=== PATIENT | male | born 1950 | race Caucasian/White ===

== ENCOUNTER 2017-03-11 07:03 | Day surgery (SDC) | payer BC ==
[2017-03-10 14:12] VITALS: BMI 25.4
[2017-03-11] MEDS ORDERED: CEFAZOLIN/Water 2 GM/20 ML SYRINGE ONE (07:27)
[2017-03-11] MEDS ORDERED: Fentanyl 250 MCG/5 ML VIAL ONE (07:32)
[2017-03-11] MEDS ORDERED: Promethazine HCl 25 MG/ML VIAL ONE (07:33)
[2017-03-11] MEDS ORDERED: Midazolam HCl 2 mg/2 ml Vial ONE (09:37)
[2017-03-11] MEDS ORDERED: Bupivacaine/Epinephrine 0.25% 30 ML VIAL ONE (09:37)
[2017-03-11] MEDS ORDERED: PHENYLEPHRINE-NS 100 MCG/ML 10 ML SYRINGE ONE (10:06)
[2017-03-11] MEDS ORDERED: Esmolol 100 MG/10 ML VIAL ONE (10:06)
[2017-03-11] MEDS ORDERED: Propofol 200 MG/20 ML VIAL ONE (10:06)
[2017-03-11] MEDS ORDERED: ePHEDrine/0.9% NaCl/PF SYRINGE 50 mg/10 ml ONE (10:06)
[2017-03-11] MEDS ORDERED: Dexamethasone 20 MG/5 ML VIAL ONE (10:06)
[2017-03-11] MEDS ORDERED: Ketorolac Tromethamine 30 MG/ML VIAL ONE (10:06)
[2017-03-11] MEDS ORDERED: Ondansetron HCl/PF 4 MG/2 ML Vial ONE (10:06)
[2017-03-11] MEDS ORDERED: Glycopyrrolate 0.2 MG/ML 5 ML SYRINGE ONE (10:06)
[2017-03-11] MEDS ORDERED: Lidocaine 1% PF 5 ML VIAL ONE (10:06)
[2017-03-11] MEDS ORDERED: Fentanyl 100 MCG/2 ML VIAL ONE ×2 (11:38→11:50)
--- NOTE | 2017-03-11 11:45 | OP ---
PREOPERATIVE DIAGNOSIS: Right inguinal hernia. SURGEON: Floyd Montenegro M.D. PROCEDURE PERFORMED: Laparoscopic robotic-assisted right inguinal hernia repair with mesh. INDICATIONS: This is a 66-year-old male who had a painful right groin bulge and was found to have a n inguinal hernia. FINDINGS: An indirect right inguinal hernia. PROCEDURE: After informed consent was obtained, the patient was taken to the operating room and giv en general endotracheal anesthesia. He was placed in the supine position. His abdomen was prepped and draped in the usual fashion. Local anesthesia infiltrated subcutaneously and deep, a supraumbil ical incision was performed. The subcu divided sharply. The fascia grasped and an incision made in the fascia. Digital palpation revealed no local adhesions. A 12 mm trocar inserted and pneumoperi toneum was created to a pressure of 15 mmHg. Zero 30-degree laparoscope inserted under direct visio n, two 8 mm ports were placed just lateral to the rectus at the level of the initial incision and th en the patient placed in Trendelenburg position and the robot was docked and I went below to the con sole. The pelvis was inspected. There was a right inguinal hernia, but no left-sided hernia. The peritoneum was opened from median umbilical ligament laterally. A subperitoneal plane was dissected utilizing blunt and sharp dissection and then a large contour mesh was inserted in the pocket. It was sutured to the pubic tubercle medially and to the abdominal wall laterally with interrupted 2-0 silk sutures tied intracorporeally. Then, the peritoneum was closed from lateral to medial with a r unning 3-0 V-Loc suture. Hemostasis assured, all needles removed. Trocars and retractors removed. The fascia closed with interrupted 0 Vicryl suture. Skin closed with interrupted 4-0 Vicryl. Derm abond applied. The patient tolerated the procedure well and transferred to recovery in good conditi on. Sponge and needle count verified correct x2.
== END 2017-03-11 15:15 | disposition home or self-care (01) ==
LOC: SDC 07:03
PROVIDERS: ATTEND Surgery
PROC: 0YU54JZ Supplement Right Inguinal Region with Synthetic Substitute, Percutaneous Endoscopic Approach (ICD-10-PCS; principal; 2017-03-11)
DX: K40.90 Unilateral inguinal hernia, without obstruction or gangrene, not specified as recurrent (principal); E11.9 Type 2 diabetes mellitus without complications; I10 Essential (primary) hypertension; E78.5 Hyperlipidemia, unspecified; G47.00 Insomnia, unspecified; K21.9 Gastro-esophageal reflux disease without esophagitis; M19.90 Unspecified osteoarthritis, unspecified site; K74.60 Unspecified cirrhosis of liver; I25.10 Atherosclerotic heart disease of native coronary artery without angina pectoris; F31.9 Bipolar disorder, unspecified; G43.909 Migraine, unspecified, not intractable, without status migrainosus; Z88.1 Allergy status to other antibiotic agents; Z79.84 Long term (current) use of oral hypoglycemic drugs; Z79.82 Long term (current) use of aspirin; Z79.899 Other long term (current) drug therapy; Z98.1 Arthrodesis status; Z90.79 Acquired absence of other genital organ(s); Z98.890 Other specified postprocedural states; Z86.19 Personal history of other infectious and parasitic diseases; Z87.891 Personal history of nicotine dependence
CPT/HCPCS: 96374; S2900; C1781; J1100; J1170; J1885; J2001; J2250; J2405; J2550; J2704; J3010

== ENCOUNTER 2017-04-11 08:00 | Outpatient (CLI) | payer BC | END 2017-04-11 08:01 | disposition home or self-care (01) | LOC: CT 08:00 | PROVIDERS: ATTEND Urology | DX: R31.0 Gross hematuria (principal); N28.1 Cyst of kidney, acquired; Z98.890 Other specified postprocedural states ==

== ENCOUNTER 2017-04-11 08:47 | Outpatient (CLI) | payer BC ==
[2017-04-11] MEDS ORDERED: Iopamidol 370 76% 100 ML VIAL ONE (17:18)
== END 2017-04-11 08:48 | disposition home or self-care (01) ==
LOC: BICCT 08:47
PROVIDERS: ATTEND Urology
DX: R31.0 Gross hematuria (principal); Q61.02 Congenital multiple renal cysts; K40.90 Unilateral inguinal hernia, without obstruction or gangrene, not specified as recurrent; Z98.890 Other specified postprocedural states
CPT/HCPCS: 74178

== ENCOUNTER 2017-09-12 20:10 | Emergency (ER) | payer BC ==
[2017-09-12] MEDS ORDERED: Lidocaine 1% 20 ML MDV ONE (20:36)
[2017-09-12] MEDS ORDERED: Bacitracin Zinc 1 Packet ONE (21:12)
[2017-09-12] MEDS ORDERED: Adacel (T-DAP) 0.5 ML VIAL ONE (21:12)
== END 2017-09-12 21:48 | disposition home or self-care (01) ==
LOC: SCSER 20:10
DX: S61.213A Laceration without foreign body of left middle finger without damage to nail, initial encounter (principal); E11.9 Type 2 diabetes mellitus without complications; I10 Essential (primary) hypertension; W26.0XXA Contact with knife, initial encounter
CPT/HCPCS: 12001; 90471; 90715; J2001

== ENCOUNTER 2017-10-31 12:50 | Outpatient (CLI) | payer BC ==
[2017-10-31] MEDS ORDERED: Gadobenate Dimeglumine 529 MG/1 ML (20ML VIAL) ONE (13:53)
== END 2017-10-31 12:51 | disposition home or self-care (01) ==
LOC: BICMRI 12:50
PROVIDERS: ATTEND Physician Assistant
DX: M50.30 Other cervical disc degeneration, unspecified cervical region (principal); M50.33 Other cervical disc degeneration, cervicothoracic region; M47.892 Other spondylosis, cervical region; M47.893 Other spondylosis, cervicothoracic region; M99.81 Other biomechanical lesions of cervical region; Z98.890 Other specified postprocedural states; Z98.1 Arthrodesis status
CPT/HCPCS: 72040; 72156; A9579

== ENCOUNTER 2017-12-23 09:12 | Outpatient (CLI) | payer BC ==
--- NOTE | 2017-12-23 11:49 | CT ---
CT ABDOMEN AND PELVIS WITH AND WITHOUT CONTRAST: HISTORY: Abnormal MRI. COMPARISON: MRI 12/07/17. FINDINGS: Lung bases are clear. No pericardial effusion. The hepatic contour is cirrhotic and nodular. On the arterial phase of enhancement, there are no art erial enhancing masses. On the portal venous phase, the portal vein is patent. No evidence of yinka l venous thrombosis. Multiple renal hypodensities are present. Moderate atherosclerotic plaque of the aorta. The spleen and pancreas are unremarkable. The appendix is visualized and is normal. Moderate to severe degenerative changes of the posterior e lements of the lumbar spine. Fiboosseous cysts bilateral femoral head and neck junctions with acetab ular osteophyte formation. IMPRESSION: 1. No evidence of abnormal arterial enhancing hepatic mass. 2. No portal venous thrombosis. POS: [facility]
[2017-12-23] MEDS ORDERED: Iopamidol 370 76% 100 ML VIAL ONE (13:31)
== END 2017-12-23 09:13 | disposition home or self-care (01) ==
LOC: CT 09:12
PROVIDERS: ATTEND Internal Medicine Gastroenterology
DX: R93.5 Abnormal findings on diagnostic imaging of other abdominal regions, including retroperitoneum (principal)
CPT/HCPCS: 74178; 82565

== ENCOUNTER 2018-02-19 21:36 | Emergency (ER) | payer BC, OTHER ==
[2018-02-19] MEDS ORDERED: Morphine 4 MG/ML VIAL ONE ×2 (22:02→23:01)
[2018-02-19] MEDS ORDERED: Ondansetron PF 4 MG/2 ML Vial ONE (22:03)
[2018-02-19 22:17] LABS: #Basophils 0.1 thou/uL (0.0-0.2); #Eosinphils 0.1 thou/uL (0.0-0.7); #Lymphocytes 2.3 thou/uL (1.20-3.40); #Monocytes 0.7 thou/uL (0.11-0.59); #Neutrophils 2.9 thou/uL (1.40-6.50); %Basophils 1.1 % (0.0-1.0); %Eosinophils 1.9 % (0.0-10.0); %Lymphocytes 38.7 % (21.0-51.0); %Monocytes 10.7 % (0.0-10.0); %Neutrophils 47.6 % (42.0-75.0); Hemoglobin 15.1 g/dL (14.0-18.0); Mean Corpuscular HGB CONC 34.9 g/dL (32.0-36.0); Mean Corpuscular Hemoglobin 31.2 pg (27.0-31.0); Mean Corpuscular Volume 89.6 fL (78.0-98.0); Mean Platelet Volume 7.6 fL (7.4-10.4); Platelet Count 156 thou/uL (130-400); RBC Distribution Width 11.2 % (11.5-14.5); Red Blood Cell (RBC) Count 4.84 mill/uL (4.70-6.10); White Blood Cell (WBC) Count 6.1 thou/uL (4.8-10.8)
[2018-02-19 22:21] LABS: INR-International Normal Ratio 1.1; PTT 27.5 SEC (22.9-36.1)
[2018-02-19 22:31] LABS: ALT (SGPT) 20 U/L (8-55); AST (SGOT) 20 U/L (5-34); Albumin 4.3 g/dL (3.4-4.8); Alkaline Phosphatase 55 U/L (40-150); Anion Gap 16 mmol/L (10-20); BUN (Urea Nitrogen) 13 mg/dL (8.4-25.7); Bilirubin, Total 0.4 mg/dL (0.2-1.2); Calc. Creatinine Clearance 0 mL/min (70-130); Calcium 10.6 mg/dL (7.8-10.44); Carbon Dioxide 25 mmol/L (23-31); Chloride 104 mmol/L (98-107); Estimated GFR-MDRD 76; Globulin 2.3 g/dL (2.4-3.5); Glucose 130 mg/dL (80-115); Lipase 53 U/L (8-78); Potassium 3.8 mmol/L (3.5-5.1); Protein, Total 6.6 g/dL (5.8-8.1); Sodium 141 mmol/L (136-145)
[2018-02-19] MEDS ORDERED: Ketorolac Tromethamine 30 MG/ML VIAL ONE (23:27)
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
== END 2018-02-19 23:54 | disposition home or self-care (01) ==
LOC: SCSER 21:36
DX: S13.4XXA Sprain of ligaments of cervical spine, initial encounter (principal); S33.5XXA Sprain of ligaments of lumbar spine, initial encounter; R11.0 Nausea; M25.551 Pain in right hip; M79.621 Pain in right upper arm; R68.84 Jaw pain; I25.10 Atherosclerotic heart disease of native coronary artery without angina pectoris; B19.20 Unspecified viral hepatitis C without hepatic coma; E11.9 Type 2 diabetes mellitus without complications; I10 Essential (primary) hypertension; Z79.84 Long term (current) use of oral hypoglycemic drugs; Z79.899 Other long term (current) drug therapy; V43.52XA Car driver injured in collision with other type car in traffic accident, initial encounter
CPT/HCPCS: 70450; 71260; 72125; 74177; 80053; 83690; 85025; 85610; 85730; 86850; 86900; 86901; 93005; 96374; 96375; 96376; J1885; J2270; J2405

== ENCOUNTER 2018-05-15 11:59 | Observation (INO) | payer BC ==
[2018-05-15 12:46] LABS: #Basophils 0.1 thou/uL (0.0-0.2); #Eosinphils 0.1 thou/uL (0.0-0.7); #Lymphocytes 2.2 thou/uL (1.20-3.40); #Monocytes 0.5 thou/uL (0.11-0.59); #Neutrophils 4.3 thou/uL (1.40-6.50); %Basophils 0.8 % (0.0-1.0); %Eosinophils 1.2 % (0.0-10.0); %Lymphocytes 30.8 % (21.0-51.0); %Monocytes 6.7 % (0.0-10.0); %Neutrophils 60.5 % (42.0-75.0); Hemoglobin 16.2 g/dL (14.0-18.0); Mean Corpuscular HGB CONC 35.6 g/dL (32.0-36.0); Mean Corpuscular Hemoglobin 32.1 pg (27.0-31.0); Mean Platelet Volume 7.6 fL (7.4-10.4); Platelet Count 187 thou/uL (130-400); RBC Distribution Width 11.5 % (11.5-14.5); Red Blood Cell (RBC) Count 5.04 mill/uL (4.70-6.10); White Blood Cell (WBC) Count 7.1 thou/uL (4.8-10.8)
[2018-05-15] MEDS ORDERED: Ondansetron ODT 4 MG TAB ONE (12:48)
[2018-05-15] MEDS ORDERED: Meclizine HCl 25 MG TAB ONE (12:48)
[2018-05-15] MEDS ORDERED: Aspirin Chewable 81 MG TAB ONE (12:48)
[2018-05-15] MEDS ORDERED: Nitroglycerin 2% Ointment 1 INCH/1 GM Packet ONE (12:49)
[2018-05-15] MEDS ORDERED: Acetaminophen 500 MG TAB ONE (12:55)
[2018-05-15 13:05] LABS: ALT (SGPT) 20 U/L (8-55); AST (SGOT) 18 U/L (5-34); Albumin 4.2 g/dL (3.4-4.8); Alkaline Phosphatase 52 U/L (40-150); Anion Gap 15 mmol/L (10-20); BUN (Urea Nitrogen) 14 mg/dL (8.4-25.7); Bilirubin, Total 0.8 mg/dL (0.2-1.2); Calc. Creatinine Clearance 0 mL/min (70-130); Calcium 9.3 mg/dL (7.8-10.44); Carbon Dioxide 23 mmol/L (23-31); Chloride 102 mmol/L (98-107); Estimated GFR-MDRD 83; Globulin 2.3 g/dL (2.4-3.5); Glucose 132 mg/dL (80-115); Lipase 40 U/L (8-78); Potassium 3.9 mmol/L (3.5-5.1); Protein, Total 6.5 g/dL (5.8-8.1); Sodium 136 mmol/L (136-145)
--- NOTE | 2018-05-15 13:56 | RAD ---
FRONTAL VIEW CHEST: Date: 05/15/18 COMPARISON: 08/07/16. INDICATION: Chest pain. FINDINGS: There is no lobar consolidation, effusion, or pneumothorax. Cardiac silhouette is normal in size. Mariela dence of prior sternotomy. There is vascular calcification. IMPRESSION: No focal consolidation. POS: [facility]
[2018-05-15 16:02] LABS: Troponin I Less than 0.010 ng/mL (< 0.028)
[2018-05-15 18:56] LABS: Troponin I Less than 0.010 ng/mL (< 0.028)
[2018-05-15] MEDS ORDERED: HYDROcodone/Acetaminophen 5/325 mg Tablet PO PRN (22:15)
[2018-05-15] MEDS ORDERED: HumaLOG 300 UNITS/3 ML VIAL SC PRN ×2 (22:17)
[2018-05-15] MEDS ORDERED: Dextrose 5% in Water 1,000 ML IV PRN (22:17)
[2018-05-15] MEDS ORDERED: Dextrose 50% Abboject 50 ML SYRINGE SLOW IVP PRN (22:17)
[2018-05-15] MEDS ORDERED: Cyclobenzaprine 10 MG TAB ONE (22:51)
[2018-05-16] MEDS ORDERED: Bisacodyl 10 MG SUPP PR PRN (02:46)
[2018-05-16] MEDS ORDERED: Bisacodyl 5 MG TAB PO PRN (02:46)
[2018-05-16] MEDS ORDERED: Calcium Carbonate 500 MG ChewTAB PO PRN (02:46)
[2018-05-16] MEDS ORDERED: Zolpidem Tartrate 5 MG TAB PO PRN (02:46)
[2018-05-16] MEDS ORDERED: Senokot S 8.6-50 MG TAB PO PRN (02:46)
[2018-05-16] MEDS ORDERED: Acetaminophen 325 MG TAB PO PRN (02:46)
[2018-05-16] MEDS ORDERED: Famotidine/PF 20 mg/2ml Vial SLOW IVP SCH (09:00)
[2018-05-16] MEDS ORDERED: Tamsulosin HCl 0.4 MG CAP PO SCH (09:00)
[2018-05-16] MEDS ORDERED: Lisinopril 5 MG TAB PO SCH (09:00)
[2018-05-16] MEDS ORDERED: Famotidine 20 MG TAB PO SCH (09:00)
[2018-05-16] MEDS ORDERED: Aspirin 325 MG TAB PO SCH (09:00)
[2018-05-16] MEDS ORDERED: Tamsulosin HCl 0.4 MG CAP ONE (09:49)
[2018-05-16] MEDS ORDERED: Lisinopril 5 MG TAB ONE (09:49)
[2018-05-16] MEDS ORDERED: Famotidine/PF 20 mg/2ml Vial ONE (09:50)
[2018-05-16] MEDS ORDERED: Famotidine 20 MG TAB ONE (09:51)
[2018-05-16] MEDS ORDERED: Aspirin 325 MG TAB ONE (09:57)
[2018-05-16] MEDS ORDERED: ADENOSINE 60 MG/20 ML VIAL ONE (13:39)
[2018-05-16] MEDS ORDERED: HYDROcodone/Acetaminophen 5/325 mg Tablet ONE (14:02)
[2018-05-16] MEDS ORDERED: Acetaminophen 325 MG TAB ONE (14:02)
--- NOTE | 2018-05-16 14:12 | NM ---
MYOCARDIAL PERFUSION STUDY: 05/16/2018 COMPARISON: 04/10/2013 RADIOPHARMACEUTICAL: Technetium 99m sestamibi 31.2 millicuries IV at stress. Technetium 99m sestamibi 9.1 millicuries IV at rest. MEDICATIONS: Adenosine 14.5 mL (42.5 mg) IV. FINDINGS: There is a small focal area of diminished uptake seen within the ventricular apex, but there is other louise a normal distribution of radiotracer seen throughout the left ventricular myocardium. No signif icant reversible defect is identified. The rotated planar images do demonstrate patient motion. Gat ed images show normal ventricular wall thickening, but there is hypokinesis involving the septum and inferior left ventricular wall. Calculated left ventricular ejection fraction is 57%. LVEF on prior study in 2012 was 68%. IMPRESSION: 1. Probably normal myocardial perfusion study without significant reversible defect seen to suggest ischemia. The very small defect in the ventricular apex may be related to soft tissue attenuation, a s there is normal ventricular wall motion and thickening in this region. 2. Hypokinesis involving the inferior left ventricular wall and septum. 3. Normal left ventricular ejection fraction of 57%. The left ventricular ejection fraction is dimi nished compared to the study in 2012, when the left ventricular ejection fraction was 68%. POS: [facility]
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
[2018-05-16] MEDS ORDERED: Atorvastatin Calcium 10 MG TAB PO SCH (21:00)
--- NOTE | 2018-06-19 08:37 | STRESS ---
Acquisition Time: 2018-05-16 12:14:40 Total Exercise Time: 00:04:00 Test Indications: CHEST PAIN Medications: Protocol: ADENOSINE Max HR: 065 BPM 41% of Pred: 155 BPM Max BP: 152/070 mmHG Max Work Load: 1.0 METS RESTING ECG: SINUS BRADYCARDIA AT 56 BPM SYMPTOMS: NONE NORMAL BP RESPONSE ECTOPY: NONE ECG STRESS: NO SIGNIFICANT CHANGES INTERPRETATION: NEGATIVE ECG/AWAIT NUCLEAR IMAGES FOR DEFINITIVE DIAGNOSIS Confirmed by CHRISTEL DAILY ([id number]) on 06/19/2018 8:36:23 AM Referred By: MD Chan LOPEZ Confirmed By:CHRISTEL DAILY
== END 2018-05-16 15:30 | disposition home or self-care (01) ==
LOC: SCSER 11:59 → ERHOLD 14:30
PROVIDERS: ADMIT Internal Medicine; ATTEND Internal Medicine
DX: R07.89 Other chest pain (principal); R42 Dizziness and giddiness; E78.5 Hyperlipidemia, unspecified; E11.9 Type 2 diabetes mellitus without complications; I10 Essential (primary) hypertension; K74.60 Unspecified cirrhosis of liver; I25.10 Atherosclerotic heart disease of native coronary artery without angina pectoris; I25.2 Old myocardial infarction; M19.90 Unspecified osteoarthritis, unspecified site; F32.9 Major depressive disorder, single episode, unspecified; Z87.891 Personal history of nicotine dependence; Z79.1 Long term (current) use of non-steroidal anti-inflammatories (NSAID); Z79.82 Long term (current) use of aspirin; Z79.84 Long term (current) use of oral hypoglycemic drugs; Z79.899 Other long term (current) drug therapy; Z88.1 Allergy status to other antibiotic agents; Z95.1 Presence of aortocoronary bypass graft; Z98.890 Other specified postprocedural states
CPT/HCPCS: 36415; 36416; 71045; 78452; 80053; 83690; 84484; 85025; 93005; 93017; A9500; G0378; J0153; Q0162; S0028

== ENCOUNTER 2018-09-01 09:08 | Outpatient (CLI) | payer BC ==
[2018-09-01 09:43] LABS: Estimated GFR-MDRD - POC Greater than 90
--- NOTE | 2018-09-01 11:26 | CT ---
CT ABDOMEN WITH AND WITHOUT IV CONTRAST: HISTORY: Cirrhosis of the liver. Lesion of the liver. COMPARISON: 02/19/2018 and 12/23/2017. FINDINGS: There are minimal dependent changes in the lung bases. Calcified granulomas in the spleen are again seen. Multiple renal hypodensities, likely cysts, are again seen. No calcified gallstones are ident ified. Nodular appearance of the liver is consistent with cirrhosis. A few tiny calcified granulomas are se en in the liver. No evidence of enhancing mass is noted in the liver. No portal splenic thrombosis is seen. No free air, free fluid, or lymphadenopathy is seen in the abdomen. IMPRESSION: Cirrhosis of the liver without evidence of enhancing mass. POS: [facility]
== END 2018-09-01 09:09 | disposition home or self-care (01) ==
LOC: SCSCT 09:08
PROVIDERS: ATTEND Internal Medicine Gastroenterology
DX: K74.60 Unspecified cirrhosis of liver (principal); K76.9 Liver disease, unspecified
CPT/HCPCS: 74170; 82565

== ENCOUNTER 2018-10-10 08:56 | Outpatient (CLI) | payer BC ==
--- NOTE | 2018-10-10 10:41 | MRI ---
MRI LUMBAR SPINE NONCONTRAST: DATE: 10/10/2018. HISTORY: A 68-year-old male with lumbar radiculopathy (right side) and low back pain. COMPARISON: No prior lumbar spine MRIs. FINDINGS: There are 5 lumbar-type vertebrae. Vertebral body heights are maintained. Alignment is normal. The re are numerous left renal cysts. The conus medullaris terminates at L2-3. No major scoliosis. Cau da equina is arranged in a symmetrical, normal distribution throughout the thecal sac. T12-L1: Essentially normal. L1-2: Essential normal. L2-3: Disk space maintained. Prominent diffuse disk bulge. No significant neural foraminal stenosi s. Minimal/mild central spinal canal stenosis. Small posterior epidural fat pad. Mild thecal sac s tenosis. L3-4: Disk space maintained. Mild disk bulge. No significant neural foraminal stenosis or central stenosis. Mild ligamentum flavum thickening and mild bilateral degenerative facet changes. L4-5: Mild disk space narrowing. Prominent diffuse disk bulge. Moderate to severe bilateral facet DJD causes a minimal grade I anterolisthesis of L4 on L5. Moderate right neural foraminal stenosis, with the exiting right L4 nerve root possibly entrapped and compressed between the hypertrophic right facet complex and the lateral and far lateral component of the prominent diffuse disk bulge. To a lesser degree, there is moderate left neural foraminal stenosis. Mild central spinal canal sten osis. Lateral recess stenosis bilaterally. Mild to moderate ligamentum flavum thickening. L5-S1: Essentially normal disk, except minimal disk bulge bilaterally laterally. Thecal sac generou s in caliber. No high-grade neural foraminal stenosis. No high-grade facet DJD. IMPRESSION: Lumbar spondylosis at L4-5 with high-grade facet osteoarthrosis causing a mild grade I spondylolisthe sis, mild degenerative disk disease, and bilateral neural foraminal stenosis, with possible impingeme nt on the exiting right L4 nerve root. Recommend clinical correlation with the distribution of the r adiculopathy. CHIKA Anthony POS: [facility]
== END 2018-10-10 08:57 | disposition home or self-care (01) ==
LOC: SCSMRI 08:56
PROVIDERS: ATTEND Specialist
DX: M47.26 Other spondylosis with radiculopathy, lumbar region (principal); M43.10 Spondylolisthesis, site unspecified; M51.16 Intervertebral disc disorders with radiculopathy, lumbar region; M48.061 Spinal stenosis, lumbar region without neurogenic claudication
CPT/HCPCS: 72148

== ENCOUNTER 2019-01-10 09:41 | Outpatient (CLI) | payer BC ==
--- NOTE | 2019-01-10 13:20 | MRI ---
MRI CERVICAL SPINE WITHOUT CONTRAST: Date: 01/10/19 INDICATION: Cervical spondylosis. Neck pain. Comparison made to CT cervical spine dated 02/19/18. FINDINGS: Postoperative and degenerative changes cervical spine again noted. Anterior plate and screws transfix C4 and C5, which was present on the prior CT. There is bony fusion at C5-6 and C6-7, which correspon ds to prior CT. At C2-3, no significant disc bulge or spondylosis. At C3-4, disc bulge and spondylosis efface the anterior subarachnoid space. No significant cord impin gement. Mild foraminal narrowing bilaterally, more prominent on the left due to facet and uncinate hy pertrophy. At C4-5, disc bulge and spondylosis efface the anterior subarachnoid space. Right foraminal stenosis due to facet and uncinate hypertrophy. At C5-6 and C6-7, there are bony fusion changes. Anterior subarachnoid space is preserved throughout these levels with no central canal stenosis or cord impingement. Mild foraminal narrowing at C6-7 due to uncinate hypertrophy. At C7-T1, there is minimal disc bulge. Cord signal is normal. IMPRESSION: There are postoperative and degenerative changes of the cervical spine, which appear stable when comp ared to the prior CT of 02/19/18. Foraminal encroachment at several levels due to hypertrophic change is seen and was also better documented on the prior CT. POS: [facility]
--- NOTE | 2019-01-10 13:25 | RAD ---
CERVICAL SPINE: 01/10/19 Three views. HISTORY: Cervical spondylosis. Anterior plate and screws transfix C4-5 with interbody implant. Bony fusion at C5-6 and C6-7. Disc na rrowing at C7-T1 with anterolisthesis and hypertrophic spurring at this level. Loss of disc space at C2-3 and mild disc narrowing at C3-4. Facet hypertrophy throughout. Anterolisthesis of at C3-4 is not ed with flexion. IMPRESSION: Degenerative and postop changes of the cervical spine noted as described. POS: [facility]
== END 2019-01-10 09:42 | disposition home or self-care (01) ==
LOC: MRI 09:41
PROVIDERS: ATTEND Nurse Practitioner Family
DX: M43.02 Spondylolysis, cervical region (principal); M47.812 Spondylosis without myelopathy or radiculopathy, cervical region
CPT/HCPCS: 72050; 72141

== ENCOUNTER 2019-02-14 07:05 | Outpatient (CLI) | payer BC ==
[2019-02-14] MEDS ORDERED: Gadobenate Dimeglumine 529 MG/1 ML (20ML VIAL) ONE (09:00)
--- NOTE | 2019-02-14 13:16 | MRI ---
MRI ABDOMEN WITH AND WITHOUT IV CONTRAST: HISTORY: Cirrhosis of the liver. CORRELATION: CT abdomen from 09/01/2018. FINDINGS: The liver demonstrates a nodular surface, consistent with the history of cirrhosis. No enhancing mass is identified. The spleen is normal in size, measuring 10.5 cm. The pancreas and adrenal glands are normal. No gallstones are seen. Bilateral renal cysts are seen, a couple of which appear hemorrhagic, on the left. No enhancing renal mass is identified. No free fluid or lymphadenopathy is noted in the abdomen. There is no evidence of aneurysmal dilatati on of the abdominal aorta. Bone marrow signal is normal. IMPRESSION: Cirrhosis of the liver without evidence of enhancing mass. POS: [facility]
== END 2019-02-14 07:06 | disposition home or self-care (01) ==
LOC: SCSMRI 07:05
PROVIDERS: ATTEND Internal Medicine Gastroenterology
DX: K74.60 Unspecified cirrhosis of liver (principal); K76.89 Other specified diseases of liver
CPT/HCPCS: 74183; 82565; A9577

== ENCOUNTER 2019-03-12 07:05 | Day surgery (SDC) | payer BC ==
[2019-03-09 10:38] VITALS: BMI 23.6
[2019-03-12 07:36] VITALS: BP 135/74; TEMP 97.2
--- NOTE | 2019-03-12 09:01 | RAD ---
CERVICAL MYELOGRAM: DATE: 03/12/2019. HISTORY: Neck pain, cervical radiculopathy. FINDINGS: Informed consent obtained prior to the procedure. 2 views cost control analyst radiograph of the lumbar spine demons trate 5 lumbar-type vertebral bodies with intact pedicles on frontal imaging. There is facet hypertrophy at L4-5 and L5-S1. There is mild multilevel disc space narrowing with anterior osteophyte formation at multiple levels within the lumbar spine as well as at the thoracolumbar junction. There is atherosclerotic calcification of the abdominal aorta. [employer] imaging of the cervical spine demonstrates anterior discectomy and fusion hardware at C4-5. The re is osseous fusion at the C5-6 and C6-7 levels with mild anterolisthesis of C7 on T1 measuring approximately 5 mm. There is multilevel mid cervical spine facet and uncovertebral osteophyte formati on. The patient was placed on the fluoroscopic table in the oblique prone position and skin overlying the lumbar spine was prepped and draped in normal sterile fashion. Skin overlying the L3-4 level is anesthetized with 1% buffered lidocaine. With intermittent fluorosco pic guidance, a 22-gauge spinal needle is advanced into the thecal sac and removal of the stylet yields clear cerebrospinal fluid. Approximately 10 cc of iodinated contrast media was injected into t he thecal sac, outlining nerve roots of the cauda equina. Needle was removed. Patient's head was tilted down to excisional the contrast media into the cervical region. The patient tolerated the procedure well. CT myelogram of the cervical spine to follow. Exposure data: 1.4 minutes of fluoroscopic time, 401.1 mGy*^m2. IMPRESSION: Successful cervical spine myelogram as detailed above. Transcribed Date/Time: 03/12/2019 10:12 AM
--- NOTE | 2019-03-12 09:20 | CT ---
CT MYELOGRAM CERVICAL SPINE: DATE: 03/12/2019. COMPARISON: None. HISTORY: Neck pain, cervical radiculopathy. TECHNIQUE: Axial CT imaging at 2.5 mm intervals through the cervical spine with intrathecal contrast media. Urvashi nal and sagittal reformatted imaging obtained. FINDINGS: Anterior discectomy and fusion hardware is present at the C4-5 level. There is moderate degenerative change at the atlantoaxial interspace. The craniocervical junction gildardo ears intact. There is 2-3 mm of anterolisthesis at C3-4. At C7-T1 there is approximately 4 mm of anterolisthesis. C1 ring is intact. C2-3: There is facet and uncovertebral osteophyte formation bilaterally, left greater than right. No significant central canal or neural foraminal stenosis. C3-4: No significant central canal or right neural foraminal stenosis. There is moderate left neural foraminal stenosis on the basis of facet and uncovertebral osteophyte formation. C4-5: Anterior discectomy and fusion hardware is present. Bilateral facet hypertrophy noted, left gre ater than right. There is significant right-sided uncovertebral osteophyte formation. There is mild central canal stenosis. No significant left neural foraminal stenosis. Moderate right neural foramina l stenosis, primarily on the basis of uncovertebral osteophyte formation. C5-6: There is fusion at the intervertebral disc level. There is mild bilateral facet hypertrophy wit h no significant central canal or neural foraminal stenosis. C6-7: Osseous fusion at the intervertebral disc level. Mild right neural foraminal stenosis on the ba sis of uncovertebral osteophyte formation. No significant left neural foraminal stenosis. C7-T1: Bilateral facet hypertrophy. Mild bilateral neural foraminal stenosis, right greater than left . No significant central canal stenosis. No lytic or blastic bone lesion. No acute fracture or evidence of dislocation. The visualized lung apices are unremarkable. There is calcified atherosclerotic plaque involving the distal CCA and proximal ICA bilaterally, not well characterized on noncontrast enhanced imaging. IMPRESSION: Postoperative and degenerative change within the cervical spine as detailed above. Transcribed Date/Time: 03/12/2019 10:00 AM
[2019-03-12] MEDS ORDERED: Iopamidol-M 300 61% 15 ML VIAL ONE (09:45)
[2019-03-12] MEDS ORDERED: FLU VACC TS2019-20(65YR UP)/PF 180 MCG/0.5 ML SYRINGE IM ONE (10:45)
[2019-03-12] MEDS ORDERED: Prevnar 13-Val Conj/PF 0.5 ML SYRINGE IM ONE (10:45)
== END 2019-03-12 10:30 | disposition home or self-care (01) ==
LOC: RAD 07:05
PROVIDERS: ATTEND Neurological Surgery
PROC: B00BYZZ Plain Radiography of Spinal Cord using Other Contrast (ICD-10-PCS; principal; 2019-03-12)
DX: M54.12 Radiculopathy, cervical region (principal); M25.78 Osteophyte, vertebrae
CPT/HCPCS: 62302; 72126; Q9967

== ENCOUNTER 2019-05-14 08:04 | Inpatient (IN) | payer BC, MEDICARE ==
[2019-05-11 16:13] VITALS: BMI 24.3
[2019-05-14 08:44] LABS: #Eosinphils 0.1 thou/uL (0.0-0.7); #Lymphocytes 1.9 thou/uL (1.20-3.40); #Monocytes 0.6 thou/uL (0.11-0.59); #Neutrophils 2.5 thou/uL (1.40-6.50); %Basophils 0.7 % (0.0-1.0); %Eosinophils 2.8 % (0.0-10.0); %Lymphocytes 36.1 % (21.0-51.0); %Monocytes 12.2 % (0.0-10.0); %Neutrophils 48.2 % (42.0-75.0); Hemoglobin 14.3 g/dL (14.0-18.0); Mean Corpuscular HGB CONC 34.2 g/dL (32.0-36.0); Mean Corpuscular Hemoglobin 31.8 pg (27.0-31.0); Mean Corpuscular Volume 92.9 fL (78.0-98.0); Mean Platelet Volume 7.3 fL (7.4-10.4); Platelet Count 190 thou/uL (130-400); RBC Distribution Width 11.8 % (11.5-14.5); Red Blood Cell (RBC) Count 4.49 mill/uL (4.70-6.10); White Blood Cell (WBC) Count 5.2 thou/uL (4.8-10.8)
[2019-05-14 09:03] LABS: Anion Gap 12 mmol/L (10-20); BUN (Urea Nitrogen) 18 mg/dL (8.4-25.7); Calc. Creatinine Clearance 91 mL/min (70-130); Calcium 9.7 mg/dL (7.8-10.44); Carbon Dioxide 26 mmol/L (23-31); Chloride 105 mmol/L (98-107); Estimated GFR-MDRD 88; Glucose 155 mg/dL (80-115); Sodium 139 mmol/L (136-145)
[2019-05-14] MEDS ORDERED: Bacitracin Zinc Ointment 30 gm TUBE ONE (11:16)
[2019-05-14] MEDS ORDERED: Famotidine/PF 20 mg/2ml Vial ONE (11:26)
[2019-05-14] MEDS ORDERED: Fentanyl 100 MCG/2 ML VIAL ONE ×3 (11:26→13:30)
[2019-05-14] MEDS ORDERED: SUGAMMADEX SODIUM 500 MG/5 ML VIAL ONE (12:13)
[2019-05-14] MEDS ORDERED: Ondansetron HCl/PF 4 MG/2 ML Vial IVP PRN ×2 (13:11→13:53)
[2019-05-14] MEDS ORDERED: Promethazine HCl 25 MG/ML VIAL IM PRN ×3 (13:11→14:24)
[2019-05-14] MEDS ORDERED: Promethazine HCl 25 MG/ML VIAL SLOW IVP PRN ×2 (13:11→13:53)
[2019-05-14] MEDS ORDERED: Tamsulosin HCl 0.4 MG CAP ONE (13:12)
[2019-05-14] MEDS ORDERED: Morphine 4 MG/ML VIAL ONE (13:41)
[2019-05-14] MEDS ORDERED: Ondansetron PF 4 MG/2 ML Vial ONE (13:53)
[2019-05-14] MEDS ORDERED: Rocuronium Bromide 10 MG/ML (10ML VIAL) ONE (13:53)
[2019-05-14] MEDS ORDERED: Ketorolac Tromethamine 30 MG/ML VIAL ONE (13:53)
[2019-05-14] MEDS ORDERED: Dexamethasone 20 MG/5 ML VIAL ONE (13:53)
[2019-05-14] MEDS ORDERED: ePHEDrine/0.9% NaCl/PF SYRINGE 50 mg/10 ml ONE (13:53)
[2019-05-14] MEDS ORDERED: Metoclopramide HCl 10 MG/2 ML VIAL ONE (13:53)
[2019-05-14] MEDS ORDERED: PACU-Morphine 4MG/ML VIAL SLOW IVP PRN (13:53)
[2019-05-14] MEDS ORDERED: Lidocaine 1% PF 5 ML VIAL ONE (13:53)
[2019-05-14] MEDS ORDERED: PROPOFOL 200 MG/20 ML VIAL ONE (13:53)
[2019-05-14] MEDS ORDERED: ACETAMINOPHEN WITH CODEINE PO PRN (13:58)
[2019-05-14] MEDS ORDERED: Scopolamine 1.5 mg/72 hour Patch TOP PRN (14:02)
[2019-05-14] MEDS ORDERED: Morphine 2 MG/ML SYRINGE ONE (14:04)
--- NOTE | 2019-05-14 14:10 | OP ---
DATE OF PROCEDURE: 05/14/2019 MECHANICAL INTEGRITY ENGINEER: Kaela Lei PA-C PROCEDURE PERFORMED: Posterior C4-C5 decompression, posterolateral C4-C5 arthrodesis, demineralized bone matrix, local morselized autograft, lateral mass screw instrumentation C4-C5. DESCRIPTION OF PROCEDURE: The patient was brought to the operating room and intubated. He was rolled in a prone position on gel-filled chest rolls. An incision was made exposing C4 and C5 and the level was confirmed by x-ray for modest bilateral C4-C5 laminectomies and then placed lateral mass screws at right C4 and right C5 using fluoroscopic guidance. The lexis was secured between the screws, connected by nuts, which were final tightened. The wound was then extensively irrigated and MAC hemostasis was secured. The left-sided lamina on the posterolateral surfaces was prepared for the purpose of arthrodesis and a combination of demineralized bone matrix and local morselized autograft was laid over both the left and right lamina on the posterolateral surfaces for the purpose of arthrodesis. Vancomycin powder was applied and the wound was then closed in anatomic layers. Job ID: [id number]
[2019-05-14] MEDS ORDERED: diphenhydrAMINE 50 MG/ML VIAL IVP PRN (14:24)
[2019-05-14] MEDS ORDERED: Promethazine HCl 12.5 MG SUPP PR PRN (14:24)
[2019-05-14] MEDS ORDERED: traMADol HCl 50 MG TAB PO PRN (14:24)
[2019-05-14] MEDS ORDERED: HYDROcodone/Acetaminophen 10/325 mg Tablet PO PRN (14:24)
[2019-05-14] MEDS ORDERED: Morphine 2 MG/ML SYRINGE SLOW IVP PRN (14:24)
[2019-05-14] MEDS ORDERED: Mag-Al 1200 mg/1200 mg/30 ML UDCUP PO PRN (14:24)
[2019-05-14] MEDS ORDERED: Ondansetron PF 4 MG/2 ML Vial IVP PRN (14:24)
[2019-05-14] MEDS ORDERED: diphenhydrAMINE 25 MG CAP PO PRN (14:24)
[2019-05-14] MEDS ORDERED: Milk Of Magnesia 30 ML UDCUP PO PRN (14:24)
[2019-05-14] MEDS ORDERED: Promethazine 25 MG TAB PO PRN (14:24)
[2019-05-14] MEDS: tiZANidine HCl 4 MG TAB PO PRN ×2 (15:39→21:23)
[2019-05-14] MEDS: traMADol HCl 50 MG TAB PO PRN ×2 (15:39→21:23)
[2019-05-14] MEDS: Sodium Chloride 0.9% 1,000 ML IV SCH (15:42)
[2019-05-14] MEDS: Morphine 4 MG/ML VIAL SLOW IVP PRN ×2 (18:00→23:41)
[2019-05-14] MEDS: metFORMIN 500 MG TAB PO SCH (18:00)
[2019-05-14] MEDS: CEFAZOLIN 2 GM in Premix Bag 1 BAG IVPB SCH (18:00)
[2019-05-14] MEDS ORDERED: Acetaminophen 325 MG TAB PO PRN (18:52)
[2019-05-14] MEDS ORDERED: Acetaminophen 650 MG Suppository PR PRN (18:52)
[2019-05-14] MEDS ORDERED: Dextrose 5% in Water 1,000 ML IV PRN (18:53)
[2019-05-14] MEDS ORDERED: HumaLOG 300 UNITS/3 ML VIAL SC PRN (18:53)
[2019-05-14] MEDS ORDERED: Dextrose 50% Abboject 50 ML SYRINGE SLOW IVP PRN (18:53)
--- NOTE | 2019-05-14 19:54 | CON ---
DATE OF CONSULTATION: 05/14/2019 TIME OF ASSESSMENT: 1700 hours. REASON FOR CONSULTATION: Medical management. HISTORY OF PRESENT ILLNESS: Mr. Lopez is a pleasant 68-year-old gentleman, who is status post cervical spine surgery done today. He underwent posterior C4-C5 decompression. He has multiple comorbidities including hypertension, hyperlipidemia, diabetes mellitus, and coronary artery disease. He has been referred for medical management. At this present time, the patient reports having some mild neck pain, but states it is tolerable and being managed with his medications. He otherwise has no complaints. He is currently having his dinner and appears to be in no distress. The patient states that at home his blood sugars tend to be under control and the last 3 times his hemoglobin A1c has been checked that has been under 6%. He reports undergoing a CABG x3 in July 2017. He had initially presented with an NSTEMI. The patient states he has been keeping in shape and exercises frequently at [facility]. 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 PAST MEDICAL HISTORY: 1. NSTEMI. 2. Diabetes mellitus. 3. Hypertension. 4. Hepatitis C, treated with interferon under the direction of Dr. Chaves in 2009. 5. Insomnia. 6. Hyperlipidemia. 7. BPH. 8. GERD. 9. Chronic neck pain. 10. Depression. 11. Arthritis. 12. Decompensated cirrhosis, biopsy-proven. 13. ASCVD. 14. Bipolar I disorder. 15. Migraines. 16. History of vertigo. PAST SURGICAL HISTORY: 1. C5 through C7 fusion in 2000. 2. Colonoscopy with polypectomy in June 2006. 3. Kidney surgery. 4. Arm surgery. 5. Cervical spine surgery in 2013, he had fusion of C4-5. 6. TURP and left retrograde pyelogram in March 2015. 7. CABG x3 in July 2016. 8. Right inguinal hernia surgery in 2016. FAMILY HISTORY: His father is and had been diagnosed with hypertension, diabetes, and heart disease. His mother also with no past medical history. His brother has diabetes and hepatitis C. SOCIAL HISTORY: The patient lives with his . Denies any tobacco use. Previously smoked. Denies any alcohol consumption. ALLERGIES: LEVOFLOXACIN AND TETRACYCLINE. CURRENT MEDICATIONS: 1. Tylenol with Codeine. 2. Amlodipine. 3. Wellbutrin. 4. Lisinopril. 5. Metformin. 6. Pantoprazole. 7. Scopolamine. 8. Tizanidine. 9. Zinc. 10. Aspirin. 11. Coreg. PHYSICAL EXAMINATION: GENERAL: The patient appears well developed, well nourished, and is in no acute distress. VITAL SIGNS: Temperature 97.8, pulse 62, respirations 18, O2 saturation 97% on room air, blood pressure 127/83. HEENT: Normocephalic and atraumatic. Pupils are equal, round, reactive to light. Sclerae without icterus. Oropharynx is clear. NECK: Supple without lymphadenopathy. Some discomfort due to recent surgery. Neck cushion in place. LUNGS: Clear to auscultation bilaterally without wheezes, rales, or rhonchi. CARDIAC: Regular rate and rhythm without audible murmurs, rubs, or gallops. ABDOMEN: Soft, nontender, nondistended. Normoactive bowel sounds present. No guarding or rigidity. No renal angle tenderness. EXTREMITIES: No lower leg swelling or edema. Mechanical SCDs in place. LABORATORY DATA: White count 5.2, hemoglobin 14.3, hematocrit 41.7, platelets 190. Sodium 139, potassium 4.0, BUN 18, creatinine 0.87, GFR 88, glucose 155, calcium 9.7. EKG, sinus bradycardia with a heart rate of 54 done on May 14, 2019. IMAGING DATA: None. IMPRESSION AND PLAN: Mr. Lopez is a pleasant 68-year-old gentleman, who is status post decompression of the cervical spine, who had surgery done today. Apparently, he had an accident recently with damage to previously completed cervical spine fusion. The patient states his pain is under control at this present time and he has been referred for medical management of the following. 1. Diabetes mellitus. Insulin sliding scale initiated. The patient's glucose appears to be well controlled with metformin and dietary changes. We will continue to monitor glucose. 2. Hypertension. Well controlled. Home medications have been restarted. We will continue to monitor blood pressure. 3. Coronary artery disease. Home medications have been restarted. EKG showed sinus bradycardia. He is receiving IV fluids at 75 mL an hour. Echocardiogram on file from July 2016 showed normal ejection fraction of 55% to 60%. There was E/A flow reversal noted suggestive of diastolic dysfunction. We will add BMP to labs. 4. Gastroesophageal reflux disease. The patient is on Protonix p.o. daily, which we will continue. 5. Depression/bipolar disorder. Home medications have been restarted. 6. Deep venous thrombosis prophylaxis with mechanical SCDs. 7. Code status is full. Surrogate decision maker is Lucie Guerrero. 8. Disposition. As per Surgical Team. Thank you for this consultation. We will continue to follow this patient with you. Job ID: [id number]
[2019-05-14] MEDS: Carvedilol 6.25 MG TAB PO SCH (20:03)
[2019-05-14] MEDS: Amlodipine 10 MG TAB PO SCH (20:03)
[2019-05-14] MEDS ORDERED: Famotidine/PF 20 mg/2ml Vial SLOW IVP SCH (21:00)
[2019-05-15] MEDS: CEFAZOLIN 2 GM in Premix Bag 1 BAG IVPB SCH (03:05)
[2019-05-15] MEDS: tiZANidine HCl 4 MG TAB PO PRN ×2 (03:06→12:16)
[2019-05-15] MEDS: traMADol HCl 50 MG TAB PO PRN ×3 (03:06→19:26)
[2019-05-15] MEDS: Sodium Chloride 0.9% 1,000 ML IV SCH (04:30)
[2019-05-15] MEDS: Tamsulosin HCl 0.4 MG CAP PO SCH (05:03)
[2019-05-15] MEDS: Morphine 4 MG/ML VIAL SLOW IVP PRN ×4 (05:03→23:29)
[2019-05-15 05:11] LABS: #Lymphocytes 0.9 thou/uL (1.20-3.40); #Monocytes 0.9 thou/uL (0.11-0.59); #Neutrophils 9.9 thou/uL (1.40-6.50); %Lymphocytes 7.6 % (21.0-51.0); %Monocytes 7.8 % (0.0-10.0); %Neutrophils 84.6 % (42.0-75.0); Hemoglobin 13.5 g/dL (14.0-18.0); Mean Corpuscular HGB CONC 34.2 g/dL (32.0-36.0); Mean Corpuscular Hemoglobin 32.3 pg (27.0-31.0); Mean Corpuscular Volume 94.7 fL (78.0-98.0); Mean Platelet Volume 7.9 fL (7.4-10.4); Platelet Count 167 thou/uL (130-400); RBC Distribution Width 11.8 % (11.5-14.5); Red Blood Cell (RBC) Count 4.17 mill/uL (4.70-6.10); White Blood Cell (WBC) Count 11.7 thou/uL (4.8-10.8)
[2019-05-15] MEDS: HumaLOG 300 UNITS/3 ML VIAL SC PRN ×3 (05:11→16:58)
[2019-05-15 05:21] LABS: Anion Gap 13 mmol/L (10-20); BUN (Urea Nitrogen) 18 mg/dL (8.4-25.7); Calc. Creatinine Clearance 83 mL/min (70-130); Calcium 8.3 mg/dL (7.8-10.44); Carbon Dioxide 24 mmol/L (23-31); Chloride 102 mmol/L (98-107); Estimated GFR-MDRD 78; Glucose 199 mg/dL (80-115); Potassium 4.2 mmol/L (3.5-5.1); Sodium 135 mmol/L (136-145)
--- NOTE | 2019-05-15 06:19 | PRG ---
DATE OF SERVICE: 05/15/2019 SUBJECTIVE: The patient is postoperative day #1, status post C4-C5 posterior fusion. Following the surgery, he was transitioned to the Med/Surg floor. He has had some issues with pain control overnight, but he is only taking the p.o. tramadol. He does have orders for [place], however, he was resistant to take this overnight because it makes him somewhat jittery. He is not having any weakness or any other worrisome findings. OBJECTIVE: On exam this morning, the patient is awake, alert, in no acute distress. He has free active range of motion of all extremities. No focal motor weakness. Incision is clean, dry, and intact. PLAN: We will continue to work on pain control and mobilization. PT has been ordered. I anticipate home in 1 to 2 days. Job ID: [id number]
[2019-05-15] MEDS: metFORMIN 500 MG TAB PO SCH ×2 (07:26→16:57)
[2019-05-15] MEDS: glipiZIDE 5 MG TAB PO SCH (07:26)
[2019-05-15] MEDS: Bupropion 150 MG XL TAB PO SCH (08:32)
[2019-05-15] MEDS: Lisinopril 5 MG TAB PO SCH (08:33)
[2019-05-15] MEDS: Carvedilol 6.25 MG TAB PO SCH ×2 (08:33→21:02)
[2019-05-15] MEDS ORDERED: FLU VACC TS2019-20(65YR UP)/PF 180 MCG/0.5 ML SYRINGE IM ONE (09:00)
[2019-05-15] MEDS ORDERED: buPROPion 75 MG TAB PO SCH (09:00)
[2019-05-15] MEDS ORDERED: Prevnar 13-Val Conj/PF 0.5 ML SYRINGE IM ONE (09:00)
--- NOTE | 2019-05-15 11:05 | PDOC.HOSPP ---
- Subjective Encounter Date: 05/15/19 Encounter Time: 09:35 Subjective: feels better has amb in hallway says his UE movement and parasthesias have gotten better - Objective Vital Signs & Weight: Vital Signs (12 hours) Temp Pulse Resp BP BP Pulse Ox 05/15/19 10:41 98.5 F 68 20 127/73 94 L 05/15/19 08:33 66 135/62 05/15/19 08:00 93 L 05/15/19 07:07 98.4 F 66 20 135/62 93 L 05/15/19 03:14 98.7 F 77 16 134/73 93 L 05/14/19 23:30 98.3 F 75 18 150/76 H 95 Weight Weight 170 lb I&O: 05/14/19 05/15/19 05/16/19 06:59 06:59 06:59 Intake Total 1700 Balance 1700 Result Diagrams: 05/15/19 04:11 05/15/19 04:11 Additional Labs: Accuchecks 05/15/19 05/14/19 05:12 22:37 POC Glucose 196 H 277 H Hospitalist ROS - Medication Medications: Active Medications Generic Name Dose Route Start Last Admin Trade Name Freq PRN Reason Stop Dose Admin Amlodipine Besylate 10 mg 05/14/19 21:00 05/14/19 20:03 Norvasc PO 10 mg HS NOEL Administration Bupropion HCl 300 mg 05/15/19 09:00 05/15/19 08:32 Wellbutrin Xl PO 300 mg DAILY NOEL Administration Carvedilol 12.5 mg 05/14/19 21:00 05/15/19 08:33 Coreg PO 12.5 mg BID NOEL Administration Glipizide 5 mg 05/15/19 07:30 05/15/19 07:26 Glucotrol PO 5 mg DAILY-AC NOEL Administration Sodium Chloride 1,000 mls @ 75 mls/hr 05/14/19 14:24 05/15/19 04:30 Normal Saline 0.9% IV Not Given .[id number] NOEL Insulin Human Lispro 0 units 05/14/19 18:53 05/15/19 05:11 Humalog SC 2 unit .MILD SLIDING SCALE PRN Administration Mild Correctional Scale Lisinopril 5 mg 05/15/19 09:00 05/15/19 08:33 Zestril PO 5 mg DAILY NOEL Administration Metformin HCl 1,000 mg 05/14/19 17:00 05/15/19 07:26 Glucophage PO 1,000 mg BID-WM NOEL Administration Morphine Sulfate 4 mg 05/14/19 14:24 05/15/19 09:39 Morphine SLOW IVP 4 mg Q1H PRN Administration SEVERE BREAKTHROUGH PAIN Pantoprazole Sodium 40 mg 05/15/19 09:00 05/15/19 08:33 Protonix PO 40 mg DAILY NOEL Administration Sodium Chloride 10 ml 05/14/19 14:24 05/15/19 09:40 Flush - Normal Saline IVF 10 ml PRN PRN Administration Saline Flush Tamsulosin HCl 0.4 mg 05/15/19 06:00 05/15/19 05:03 Flomax PO 0.4 mg 0600 NOEL Administration Tizanidine HCl 4 mg 05/14/19 14:24 05/15/19 03:06 Zanaflex PO 4 mg Q6H PRN Administration MUSCLE SPASM Tramadol HCl 100 mg 05/14/19 14:24 05/15/19 03:06 Ultram PO 100 mg Q6H PRN Administration PAIN (4-6) - Exam General Appearance: NAD, awake alert Eye: anicteric sclera ENT: no oropharyngeal lesions, moist mucosa Neck: symmetric, no JVD Heart: RRR, no murmur Respiratory: no wheezes, no rales Gastrointestinal: soft, non-tender, non-distended, normal bowel sounds Extremities: no cyanosis, no edema Neurological: cranial nerve grossly intact, no focal deficits Psychiatric: normal affect, A&O x 3 Hosp A/P (1) s/p C3-4 decompression and arthrodesis Status: Acute (2) BPH (benign prostatic hyperplasia) Code(s): N40.0 - BENIGN PROSTATIC HYPERPLASIA WITHOUT LOWER URINRY TRACT SYMP Status: Chronic Qualifiers: Lower urinary tract symptom presence: symptoms absent Qualified Code(s): N40.0 - Benign prostatic hyperplasia without lower urinary tract symptoms (3) CAD (coronary artery disease) Code(s): I25.10 - ATHSCL HEART DISEASE OF [place] CORONARY ARTERY W/O ANG PCTRS Status: Chronic Qualifiers: Coronary Disease-Associated Artery/Lesion type: bypass graft [place] vs. 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
[2019-05-15] MEDS: Amlodipine 10 MG TAB PO SCH (21:02)
[2019-05-16] MEDS: traMADol HCl 50 MG TAB PO PRN ×2 (01:27→12:52)
[2019-05-16] MEDS: tiZANidine HCl 4 MG TAB PO PRN ×2 (01:27→12:52)
[2019-05-16] MEDS: Morphine 4 MG/ML VIAL SLOW IVP PRN (02:10)
[2019-05-16] MEDS: Tamsulosin HCl 0.4 MG CAP PO SCH (05:40)
[2019-05-16] MEDS: HYDROcodone/Acetaminophen 10/325 mg Tablet PO PRN ×2 (05:40→09:40)
[2019-05-16] MEDS: glipiZIDE 5 MG TAB PO SCH (07:00)
[2019-05-16] MEDS: metFORMIN 500 MG TAB PO SCH (08:12)
[2019-05-16] MEDS: Bupropion 150 MG XL TAB PO SCH (08:12)
[2019-05-16] MEDS: Lisinopril 5 MG TAB PO SCH (08:12)
[2019-05-16] MEDS: Carvedilol 6.25 MG TAB PO SCH (08:13)
--- NOTE | 2019-05-16 08:44 | DIS ---
DATE OF ADMISSION: 05/14/2019 DATE OF DISCHARGE: 05/16/2019 HOSPITAL COURSE: The patient is a 68-year-old male, who underwent C4-C5 posterior fusion on 05/14/2019. Following this surgery, he was transitioned to the Med/Surg floor, where his pain has improved since admission. It is now well controlled with his p.o. medications, [place] during the day and tramadol at night. He is tolerating a regular diet and voiding appropriately. He has been up ambulating throughout the department without any difficulty. PHYSICAL EXAMINATION: On exam this morning, he is awake, alert, in no acute distress. He has free active range of motion of all extremities. No focal motor weakness. No reflex asymmetry. His incision is clean, dry, and intact. PLAN: We will plan to dismiss to home. I have discussed home care precautions. We will follow up with the patient in 2 weeks. He has been provided with scripts for [place], tramadol, Zanaflex, and Keflex. Job ID: [id number]
[2019-05-16 10:40] VITALS: BP 135/77; TEMP 98.3
--- NOTE | 2019-05-16 11:16 | PDOC.HOSPP ---
- Subjective Encounter Date: 05/16/19 Encounter Time: 07:00 Subjective: Patient seen and examined. No new complaints. No overnight events - Objective Vital Signs & Weight: Vital Signs (12 hours) Temp Pulse Resp BP BP Pulse Ox 05/16/19 10:40 98.3 F 56 L 20 135/77 95 05/16/19 08:13 149/81 H 05/16/19 08:12 63 149/81 H 05/16/19 08:00 94 L 05/16/19 07:10 98.4 F 63 20 149/81 H 94 L 05/16/19 03:36 98.3 F 60 16 144/77 H 95 05/15/19 23:22 98.6 F 68 16 156/77 H 96 Weight Weight 170 lb I&O: 05/15/19 05/16/19 05/17/19 06:59 06:59 06:59 Intake Total 1700 2200 Output Total 400 Balance 1700 1800 Result Diagrams: 05/15/19 04:11 05/15/19 04:11 Additional Labs: Accuchecks 05/16/19 05/15/19 05/15/19 05:26 20:43 14:56 POC Glucose 126 H 155 H 172 H Hospitalist ROS - Review of Systems ENT: denies: ear pain, ear discharge, nose pain, nose discharge, nose congestion , mouth pain, mouth swelling, throat pain, throat swelling, other Respiratory: denies: cough, dry, shortness of breath, hemoptysis, SOB with excertion, pleuritic pain, sputum, wheezing, other Cardiovascular: denies: chest pain, palpitations, orthopnea, paroxysmal noc. dyspnea, edema, light headedness, other Gastrointestinal: denies: nausea, vomiting, abdominal pain, diarrhea, constipation, melena, hematochezia, other Genitourinary: denies: dysuria, frequency, incontinence, hematuria, retention, other Musculoskeletal: denies: neck pain, shoulder pain, arm pain, back pain, hand pain, leg pain, foot pain, other Skin: denies: rash, lesions, solange, bruising, other - Medication Medications: Active Medications Generic Name Dose Route Start Last Admin Trade Name Freq PRN Reason Stop Dose Admin Hydrocodone Bitart/Acetaminophen 2 tab 05/14/19 14:24 05/16/19 09:40 [place] 10/325 PO 2 tab Q4H PRN Administration PAIN (4-6) Amlodipine Besylate 10 mg 05/14/19 21:00 05/15/19 21:02 Norvasc PO 10 mg HS NOEL Administration Bupropion HCl 300 mg 05/15/19 09:00 05/16/19 08:12 Wellbutrin Xl PO 300 mg DAILY NOEL Administration Carvedilol 12.5 mg 05/14/19 21:00 05/16/19 08:13 Coreg PO 12.5 mg BID NOEL Administration Glipizide 5 mg 05/15/19 07:30 05/16/19 07:00 Glucotrol PO 5 mg DAILY-AC NOEL Administration Insulin Human Lispro 0 units 05/14/19 18:53 05/15/19 16:58 Humalog SC 2 unit .MILD SLIDING SCALE PRN Administration Mild Correctional Scale Lisinopril 5 mg 05/15/19 09:00 05/16/19 08:12 Zestril PO 5 mg DAILY NOEL Administration Magnesium Hydroxide 30 ml 05/14/19 14:24 05/16/19 05:40 Milk Of Magnesium PO 30 ml Q12H PRN Administration Constipation Metformin HCl 1,000 mg 05/14/19 17:00 05/16/19 08:12 Glucophage PO 1,000 mg BID-WM NOEL Administration Morphine Sulfate 4 mg 05/14/19 14:24 05/16/19 02:10 Morphine SLOW IVP 4 mg Q1H PRN Administration SEVERE BREAKTHROUGH PAIN Pantoprazole Sodium 40 mg 05/15/19 09:00 05/16/19 08:12 Protonix PO 40 mg DAILY NOEL Administration Sodium Chloride 10 ml 05/15/19 21:00 05/16/19 08:15 Flush - Normal Saline IVF 10 ml Q12HR NOEL Administration Tamsulosin HCl 0.4 mg 05/15/19 06:00 05/16/19 05:40 Flomax PO 0.4 mg 0600 [facility] Administration Tizanidine HCl 4 mg 05/14/19 14:24 05/16/19 01:27 Zanaflex PO 4 mg Q6H PRN Administration MUSCLE SPASM Tramadol HCl 100 mg 05/14/19 14:24 05/16/19 01:27 Ultram PO 100 mg Q6H PRN Administration PAIN (4-6) - Exam General Appearance: NAD, awake alert Eye: PERRL, anicteric sclera ENT: normocephalic atraumatic, no oropharyngeal lesions Neck: supple, symmetric, no JVD, no thyromegaly Heart: RRR, no murmur, no gallops, no rubs, normal peripheral pulses Respiratory: CTAB, no wheezes, no rales, no ronchi Gastrointestinal: soft, non-tender, non-distended, normal bowel sounds Extremities: no cyanosis, no clubbing, no edema Skin: normal turgor, no lesions, no rashes Neurological: no focal deficits Musculoskeletal: normal tone, normal strength Psychiatric: normal affect, normal behavior Hosp A/P (1) s/p C3-4 decompression and arthrodesis Status: Acute (2) BPH (benign prostatic hyperplasia) Code(s): N40.0 - BENIGN PROSTATIC HYPERPLASIA WITHOUT LOWER URINRY TRACT SYMP Status: Chronic Qualifiers: Lower urinary tract symptom presence: symptoms absent Qualified Code(s): N40.0 - Benign prostatic hyperplasia without lower urinary tract symptoms (3) Atrial fibrillation Code(s): I48.91 - UNSPECIFIED ATRIAL FIBRILLATION Status: Chronic Qualifiers: Atrial fibrillation type: paroxysmal Qualified Code(s): I48.0 - Paroxysmal atrial fibrillation (4) Alcohol abuse Code(s): F10.10 - ALCOHOL ABUSE, UNCOMPLICATED Status: Chronic (5) CAD (coronary artery disease) Code(s): I25.10 - ATHSCL HEART DISEASE OF [place] CORONARY ARTERY W/O ANG PCTRS Status: Chronic Qualifiers: Coronary Disease-Associated Artery/Lesion type: bypass graft [place] vs. 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
[2019-05-16] MEDS ORDERED: Lidocaine 4% Topical Sol 50 ML BOT TOP PRN (12:34)
--- NOTE | 2019-05-16 13:36 | EKG ---
Test Reason : PREOP Blood Pressure : / mmHG Vent. Rate : 054 BPM Atrial Rate : 054 BPM P-R Int : 148 ms QRS Dur : 088 ms QT Int : 446 ms P-R-T Axes : 045 049 067 degrees QTc Int : 422 ms Sinus bradycardia Otherwise normal ECG When compared with ECG of 15-MAY-2018 17:06, No significant change was found Confirmed by KENYATTA MALDONADO (2) on 05/16/2019 1:35:54 PM Referred By: KATERINE Confirmed By:KENYATTA MALDONADO
== END 2019-05-16 13:59 | disposition home or self-care (01) | DRG 473 ==
LOC: SURG A 08:04 → EDSTATUS 09:45 → SURG A 14:50
PROVIDERS: ADMIT Neurological Surgery; ATTEND Neurological Surgery
PROC: 0RG1071 Fusion of Cervical Vertebral Joint with Autologous Tissue Substitute, Posterior Approach, Posterior Column, Open Approach (ICD-10-PCS; principal; 2019-05-14)
PROC: 01N10ZZ Release Cervical Nerve, Open Approach (ICD-10-PCS; 2019-05-14)
DX: M50.121 Cervical disc disorder at C4-C5 level with radiculopathy (principal); I10 Essential (primary) hypertension; E78.5 Hyperlipidemia, unspecified; E11.9 Type 2 diabetes mellitus without complications; I25.10 Atherosclerotic heart disease of native coronary artery without angina pectoris; N40.0 Benign prostatic hyperplasia without lower urinary tract symptoms; G47.00 Insomnia, unspecified; F31.9 Bipolar disorder, unspecified; K21.9 Gastro-esophageal reflux disease without esophagitis; B18.2 Chronic viral hepatitis C; Z88.1 Allergy status to other antibiotic agents; Z95.1 Presence of aortocoronary bypass graft; Z28.21 Immunization not carried out because of patient refusal; Z79.899 Other long term (current) drug therapy; Z79.82 Long term (current) use of aspirin; Z79.84 Long term (current) use of oral hypoglycemic drugs
CPT/HCPCS: 36415; 36416; 76000; 80048; 83880; 85025; 93005; 93010; C1713; C1768; J0690; J1100; J1885; J2001; J2270; J2405; J2704; J2765; J3010; J3370; J3490; S0028

== ENCOUNTER 2019-05-29 09:35 | Outpatient (CLI) | payer BC ==
--- NOTE | 2019-05-29 09:54 | RAD ---
EXAM: Cervical spine: 3 views INDICATIONS: Cervical radiculopathy. Postop follow-up. COMPARISON: 01/10/2019 FINDINGS: Postop changes. Posterior skin anatoliy indicate recent surgical procedure. Anterior plate a nd screws again seen transfixing C4-5 with interbody fusion and interbody implant. Posterior alignment is preserved. Pedicle screws have been placed on the right at C4-5 when compared to prior exam. Fusion at C5-6 and C6-7 again noted. Slight anterolisthesis at C7-T1 again noted. IMPRESSION: Postoperative and degenerative changes appear stable.
== END 2019-05-29 09:36 | disposition home or self-care (01) ==
LOC: TBSIIMAG 09:35
PROVIDERS: ATTEND Neurological Surgery
DX: M47.22 Other spondylosis with radiculopathy, cervical region (principal); Z98.890 Other specified postprocedural states
CPT/HCPCS: 72040

== ENCOUNTER 2019-07-23 11:08 | Outpatient (CLI) | payer BC, MEDICARE ==
--- NOTE | 2019-07-23 12:59 | RAD ---
CERVICAL SPINE AP AND LATERAL AND STANDARD: HISTORY: Cervical radiculopathy. COMPARISON: Radiograph of 05/29/2019. FINDINGS: Continued satisfactory appearance of the ACDF at C4-5 diskectomy change as well as right unilateral p osterior fixation with transpedicular lexis and screw fixation. There is osseous fusion ankylosis at C6-7. IMPRESSION: Continued satisfactory postoperative appearance. POS: [facility]
== END 2019-07-23 11:09 | disposition home or self-care (01) ==
LOC: TBSIIMAG 11:08
PROVIDERS: ATTEND Neurological Surgery
DX: M54.12 Radiculopathy, cervical region (principal); Z98.1 Arthrodesis status
CPT/HCPCS: 72040

== ENCOUNTER 2019-08-28 11:28 | Outpatient (CLI) | payer BC ==
[2019-08-28] MEDS ORDERED: Magnevist 469MG/ML 20 ML VIAL ONE (12:06)
[2019-08-28 12:47] LABS: Estimated GFR-MDRD - POC Greater than 90
[2019-08-28 13:26] LABS: #Eosinphils 0.2 thou/uL (0.0-0.7); #Lymphocytes 2.3 thou/uL (1.20-3.40); #Monocytes 0.7 thou/uL (0.11-0.59); %Basophils 0.6 % (0.0-1.0); %Eosinophils 2.2 % (0.0-10.0); %Lymphocytes 31.9 % (21.0-51.0); %Monocytes 10.1 % (0.0-10.0); %Neutrophils 55.3 % (42.0-75.0); Hemoglobin 15.1 g/dL (14.0-18.0); Mean Corpuscular HGB CONC 34.7 g/dL (32.0-36.0); Mean Corpuscular Hemoglobin 32.4 pg (27.0-31.0); Mean Corpuscular Volume 93.3 fL (78.0-98.0); Platelet Count 206 thou/uL (130-400); RBC Distribution Width 12.4 % (11.5-14.5); Red Blood Cell (RBC) Count 4.67 mill/uL (4.70-6.10); White Blood Cell (WBC) Count 7.3 thou/uL (4.8-10.8)
[2019-08-28 13:47] LABS: ALT (SGPT) 19 U/L (8-55); AST (SGOT) 20 U/L (5-34); Albumin 4.6 g/dL (3.4-4.8); Alkaline Phosphatase 65 U/L (40-110); Anion Gap 13 mmol/L (10-20); BUN (Urea Nitrogen) 11 mg/dL (8.4-25.7); Bilirubin, Total 0.7 mg/dL (0.2-1.2); Calc. Creatinine Clearance 0 mL/min (70-130); Calcium 9.6 mg/dL (7.8-10.44); Carbon Dioxide 25 mmol/L (23-31); Chloride 104 mmol/L (98-107); Estimated GFR-MDRD 86; Globulin 2.5 g/dL (2.4-3.5); Glucose 128 mg/dL (80-115); Protein, Total 7.1 g/dL (5.8-8.1); Sodium 138 mmol/L (136-145)
--- NOTE | 2019-08-28 13:52 | MRI ---
MRI ABDOMEN WITH AND WITHOUT CONTRAST: HISTORY: Cirrhosis of liver. Hepatitis C. COMPARISON: MRI of 02/14/2019. FINDINGS: No pericardial effusion. No significant pleural effusion. Multiple cysts of both kidneys. No cholelithiasis. No intrahepatic or extrahepatic biliary dilatati on. There is nodular contour of the liver. No arterial enhancing mass. The portal vein is patent. The spleen is normal. No dilated loops of bowel in the abdomen. Pancreas is unremarkable. No retroperitoneal or periaortic adenopathy. No yinka hepatis adenopathy. IMPRESSION: 1. Mild background hepatic cirrhosis without suspicious mass. 2. Bilateral renal cysts. 3. No acute inflammatory process in the abdomen. 4. No cholelithiasis or choledocholithiasis. POS: HOME
== END 2019-08-28 11:29 | disposition home or self-care (01) ==
LOC: MRI 11:28
PROVIDERS: ATTEND Internal Medicine Gastroenterology
DX: K74.60 Unspecified cirrhosis of liver (principal); K76.9 Liver disease, unspecified; B18.2 Chronic viral hepatitis C; N28.1 Cyst of kidney, acquired
CPT/HCPCS: 36415; 74183; 80053; 82105; 82565; 85025

== ENCOUNTER 2020-02-21 07:25 | Outpatient (CLI) | payer BC ==
--- NOTE | 2020-02-21 08:15 | ULT ---
Hepatic Doppler ultrasound: 02/21/2020 COMPARISON: None HISTORY: Cirrhosis TECHNIQUE: Multiplanar grayscale sonographic imaging of the abdomen provided. The hepatic and splenic vasculature is assessed with Doppler interrogation including color flow and spectral analysis FINDINGS: The imaged IVC and aorta appear grossly unremarkable. Visualized pancreas unremarkable. The tail is obscured by bowel gas. The hepatic parenchyma is heterogeneous with a mildly irregular peripheral contour consistent with th e provided history of cirrhosis. No gallbladder wall thickening or pericholecystic fluid. Questionable small foci of increased echogen icity within the gallbladder without shadowing which could represent small volume sludge, small gallbladder polyps, or potentially nonshadowing stones. No shadowing gallstones are seen. The main portal vein, right portal vein, and left portal vein are patent and demonstrate appropriate waveforms and directional flow. Hepatic artery demonstrates a normal waveform. Common bile duct measures 2 mm, within normal limits. Right hepatic vein, middle hepatic vein, and left hepatic vein patent with normal waveforms. The spleen measures up to 11.2 cm, within normal limits. Splenic artery and splenic vein are patent a nd demonstrate appropriate arterial and venous waveforms respectively. IMPRESSION: Patent hepatic and splenic vasculature. Incidental findings as above.
== END 2020-02-21 07:26 | disposition home or self-care (01) ==
LOC: ULT 07:25
PROVIDERS: ATTEND Internal Medicine Gastroenterology
DX: K74.60 Unspecified cirrhosis of liver (principal)
CPT/HCPCS: 76705

== ENCOUNTER 2022-05-13 13:06 | Emergency (ER) | payer BC, MEDICARE, OTHER ==
[2022-05-13] MEDS ORDERED: Lidocaine 1% w/Epinephrine 1:100K 20 ML VIAL ONE (15:31)
== END 2022-05-13 15:57 | disposition home or self-care (01) ==
LOC: ERS 13:06
DX: M70.31 Other bursitis of elbow, right elbow (principal); E78.00 Pure hypercholesterolemia, unspecified; K21.9 Gastro-esophageal reflux disease without esophagitis; E11.9 Type 2 diabetes mellitus without complications; I10 Essential (primary) hypertension; W57.XXXA Bitten or stung by nonvenomous insect and other nonvenomous arthropods, initial encounter; Z79.899 Other long term (current) drug therapy; Z79.82 Long term (current) use of aspirin; Z87.891 Personal history of nicotine dependence
CPT/HCPCS: 20605; 93005

== ENCOUNTER 2022-05-15 11:57 | Inpatient (IN) | payer MEDICARE ==
[2022-05-15 12:56] LABS: #Eosinphils 0.1 thou/uL (0.0-0.7); #Lymphocytes 0.8 thou/uL (1.20-3.40); #Monocytes 0.8 thou/uL (0.11-0.59); #Neutrophils 4.6 thou/uL (1.40-6.50); %Basophils 0.1 % (0.0-1.0); %Eosinophils 0.9 % (0.0-10.0); %Lymphocytes 12.5 % (21.0-51.0); %Monocytes 12.4 % (0.0-10.0); %Neutrophils 74.1 % (42.0-75.0); Hemoglobin 13.8 g/dL (14.0-18.0); Mean Corpuscular HGB CONC 34.7 g/dL (32.0-36.0); Mean Corpuscular Hemoglobin 32.5 pg (27.0-31.0); Mean Corpuscular Volume 93.8 fl (78.0-98.0); RBC Distribution Width 12.4 % (11.5-14.5); Red Blood Cell (RBC) Count 4.25 mill/uL (4.70-6.10); White Blood Cell (WBC) Count 6.2 10x3/uL (4.8-10.8)
[2022-05-15] MEDS ORDERED: Cefepime 2 GM VIAL ONE (13:03)
[2022-05-15] MEDS ORDERED: Morphine 4 MG/ML VIAL ONE (13:03)
[2022-05-15] MEDS ORDERED: Ondansetron PF 4 MG/2 ML Vial ONE (13:03)
[2022-05-15 13:15] LABS: ALT (SGPT) 20 U/L (8-55); AST (SGOT) 20 U/L (5-34); Albumin 3.7 g/dL (3.4-4.8); Alkaline Phosphatase 58 U/L (40-110); Anion Gap 15 mmol/L (10-20); BUN (Urea Nitrogen) 12 mg/dL (8.4-25.7); Bilirubin, Total 0.7 mg/dL (0.2-1.2); Calc. Creatinine Clearance 0 mL/min (70-130); Calcium 8.7 mg/dL (7.8-10.44); Carbon Dioxide 20 mmol/L (23-31); Chloride 97 mmol/L (98-107); Estimated GFR 91; Globulin 2.9 g/dL (2.4-3.5); Glucose 161 mg/dL (80-115); Potassium 4.1 mmol/L (3.5-5.1); Protein, Total 6.6 g/dL (5.8-8.1); Sodium 128 mmol/L (136-145)
[2022-05-15 13:28] LABS: Mean Platelet Volume 7.3 fL (7.4-10.4); Platelet Count 118 10x3/uL (130-400)
[2022-05-15 13:29] LABS: Platelet Morphology Comment Appears Decreased; RBC Morphology Normal
[2022-05-15] MEDS ORDERED: HYDROcodone/Acetaminophen 5/325 mg Tablet PO PRN (14:05)
[2022-05-15] MEDS ORDERED: Ondansetron PF 4 MG/2 ML Vial IVP PRN (14:05)
[2022-05-15] MEDS ORDERED: Acetaminophen 325 MG TAB PO PRN (14:05)
[2022-05-15] MEDS ORDERED: Vancomycin 1 GM/200 ML (FROZEN) BAG ONE (14:08)
[2022-05-15] MEDS ORDERED: HumaLOG 300 UNITS/3 ML VIAL SC PRN (14:09)
[2022-05-15] MEDS ORDERED: Dextrose 50% Abboject 50 ML SYRINGE SLOW IVP PRN (14:09)
[2022-05-15] MEDS ORDERED: Dextrose 5% in Water 1,000 ML IV PRN (14:09)
[2022-05-15 14:32] LABS: Bilirubin Negative (Negative); Blood, Urine Negative (Negative); Clarity Clear (Clear); Glucose, Urine (Dipstick) Normal (Negative); Ketone, Urine Negative (Negative); Leukocyte Negative Leu/uL (Negative); Nitrite Negative (Negative); Protein, Urine (Dipstick) Negative (Neg-Trace); Specific Gravity, Urine 1.006 (1.002-1.036); Urobilinogen Normal mg/dL (Less than 2)
[2022-05-15 15:29] VITALS: BMI 22.6
[2022-05-15] MEDS: Sodium Chloride 0.9% 1,000 ML IV SCH (15:56)
[2022-05-15 16:04] LABS: Lactic Acid 1.6 mmol/L (0.5-2.2)
[2022-05-15] MEDS: Amlodipine 10 MG TAB PO SCH (20:18)
[2022-05-15] MEDS: Carvedilol 25 MG TAB PO SCH (20:19)
[2022-05-15] MEDS ORDERED: tiZANidine HCl 4 MG TAB PO PRN (20:32)
[2022-05-15] MEDS: Naproxen 500 MG TAB PO SCH (20:42)
[2022-05-15] MEDS ORDERED: Acetaminophen/Codeine 30-300mg Tablet PO SCH (20:45)
[2022-05-16] MEDS: Sodium Chloride 0.9% 1,000 ML IV SCH ×2 (01:09→13:54)
[2022-05-16] MEDS ORDERED: Vancomycin 1 GM in Premix Bag 1 BAG IVPB SCH (02:00)
[2022-05-16] MEDS ORDERED: Sodium Chloride 0.9% 500 ML IV SCH (02:30)
[2022-05-16 02:55] LABS: ALT (SGPT) 17 U/L (8-55); AST (SGOT) 17 U/L (5-34); Albumin 2.8 g/dL (3.4-4.8); Alkaline Phosphatase 43 U/L (40-110); Anion Gap 11 mmol/L (10-20); BUN (Urea Nitrogen) 12 mg/dL (8.4-25.7); Bilirubin, Total 0.5 mg/dL (0.2-1.2); Calc. Creatinine Clearance 89 mL/min (70-130); Calcium 7.9 mg/dL (7.8-10.44); Carbon Dioxide 21 mmol/L (23-31); Chloride 105 mmol/L (98-107); Estimated GFR 96; Globulin 2.2 g/dL (2.4-3.5); Glucose 155 mg/dL (80-115); Potassium 3.9 mmol/L (3.5-5.1); Sodium 133 mmol/L (136-145)
[2022-05-16 03:02] LABS: Band 11 % (5-11); Eosinophils 2 % (0-10); Hemoglobin 11.5 g/dL (14.0-18.0); Lymphocytes 27 % (21-51); MDiff Complete? YES; Mean Corpuscular HGB CONC 35.3 g/dL (32.0-36.0); Mean Corpuscular Hemoglobin 32.9 pg (27.0-31.0); Mean Corpuscular Volume 93.1 fl (78.0-98.0); Mean Platelet Volume 7.5 fL (7.4-10.4); Monocytes 5 % (0-10); Neutrophil 55 % (42-75); Platelet Count 102 10x3/uL (130-400); Platelet Morphology Comment Appears Decreased; RBC Distribution Width 12.3 % (11.5-14.5); Red Blood Cell (RBC) Count 3.48 mill/uL (4.70-6.10); White Blood Cell (WBC) Count 3.4 10x3/uL (4.8-10.8)
[2022-05-16] MEDS: cefTRIAXone\\ROCEPHIN 2 GM in Sodium Chloride 0.9% 100 ML IVPB SCH (09:18)
[2022-05-16] MEDS: Naproxen 500 MG TAB PO SCH ×2 (09:19→20:45)
[2022-05-16] MEDS: Aspirin 81 mg Enteric Coated Tablet PO SCH (09:20)
[2022-05-16] MEDS: Carvedilol 25 MG TAB PO SCH (09:20)
[2022-05-16] MEDS: Vancomycin 1 GM in Premix Bag 1 BAG IVPB SCH (13:50)
[2022-05-16] MEDS: Amlodipine 10 MG TAB PO SCH (20:44)
[2022-05-16] MEDS: metFORMIN XR 500 MG TAB PO SCH (20:44)
[2022-05-17 01:34] LABS: Vancomycin, Trough 8.6 ug/mL
[2022-05-17] MEDS: Vancomycin 1 GM in Premix Bag 1 BAG IVPB SCH (03:39)
[2022-05-17] MEDS: Sodium Chloride 0.9% 1,000 ML IV SCH (03:46)
[2022-05-17 06:28] LABS: Hemoglobin 12.6 g/dL (14.0-18.0); Mean Corpuscular HGB CONC 34.8 g/dL (32.0-36.0); Mean Corpuscular Hemoglobin 32.3 pg (27.0-31.0); Mean Corpuscular Volume 92.8 fl (78.0-98.0); Mean Platelet Volume 7.9 fL (7.4-10.4); Platelet Count 104 10x3/uL (130-400); RBC Distribution Width 12.5 % (11.5-14.5); White Blood Cell (WBC) Count 3.2 10x3/uL (4.8-10.8)
[2022-05-17 06:48] LABS: Anion Gap 11 mmol/L (10-20); BUN (Urea Nitrogen) 8 mg/dL (8.4-25.7); CRP (Inflammatory) 12.56 mg/dL (= or < 0.5); Calc. Creatinine Clearance 109 mL/min (70-130); Calcium 8.6 mg/dL (7.8-10.44); Carbon Dioxide 23 mmol/L (23-31); Chloride 109 mmol/L (98-107); Estimated GFR 102; Glucose 142 mg/dL (80-115); Potassium 3.7 mmol/L (3.5-5.1); Sodium 139 mmol/L (136-145)
[2022-05-17 07:01] LABS: Band 9 % (5-11); Eosinophils 2 % (0-10); Lymphocytes 32 % (21-51); MDiff Complete? YES; Monocytes 16 % (0-10); Neutrophil 39 % (42-75); Platelet Morphology Comment Appears Decreased; Reactive Lymphocytes 2 % (0-10)
[2022-05-17] MEDS: Aspirin 81 mg Enteric Coated Tablet PO SCH (08:30)
[2022-05-17] MEDS: Naproxen 500 MG TAB PO SCH (08:30)
[2022-05-17] MEDS: metFORMIN XR 500 MG TAB PO SCH ×2 (08:30→22:02)
[2022-05-17] MEDS: cefTRIAXone\\ROCEPHIN 2 GM in Sodium Chloride 0.9% 100 ML IVPB SCH (08:30)
[2022-05-17] MEDS ORDERED: Vancomycin 1 GM in Premix Bag 1 BAG IVPB SCH (12:00)
[2022-05-17] MEDS: Ketorolac Tromethamine 30 MG/ML VIAL IVP PRN ×2 (13:07→20:46)
[2022-05-17] MEDS: Sulfameth/Trimethoprim DS 800-160mg TAB PO SCH (20:46)
[2022-05-17] MEDS: Amlodipine 10 MG TAB PO SCH (20:46)
[2022-05-18] MEDS ORDERED: Carvedilol 25 MG TAB PO SCH (01:45)
[2022-05-18] MEDS: metFORMIN XR 500 MG TAB PO SCH (08:20)
[2022-05-18] MEDS: Sulfameth/Trimethoprim DS 800-160mg TAB PO SCH (08:20)
[2022-05-18] MEDS: Aspirin 81 mg Enteric Coated Tablet PO SCH (08:20)
[2022-05-18 09:12] VITALS: BP 134/69; TEMP 97.1
== END 2022-05-18 10:40 | disposition home or self-care (01) | DRG 872 ==
LOC: ERS 11:57 → T4-B 13:49
PROVIDERS: ADMIT Internal Medicine; ATTEND Family Medicine
DX: A41.01 Sepsis due to Methicillin susceptible Staphylococcus aureus (principal); L03.113 Cellulitis of right upper limb; E87.1 Hypo-osmolality and hyponatremia; E87.20 Acidosis, unspecified; L02.413 Cutaneous abscess of right upper limb; Z20.822 Contact with and (suspected) exposure to COVID-19; K21.9 Gastro-esophageal reflux disease without esophagitis; N40.0 Benign prostatic hyperplasia without lower urinary tract symptoms; E78.00 Pure hypercholesterolemia, unspecified; I25.10 Atherosclerotic heart disease of native coronary artery without angina pectoris; I10 Essential (primary) hypertension; M19.90 Unspecified osteoarthritis, unspecified site; G47.00 Insomnia, unspecified; F32.A Depression, unspecified; F17.210 Nicotine dependence, cigarettes, uncomplicated; D69.6 Thrombocytopenia, unspecified; M71.121 Other infective bursitis, right elbow; Z98.1 Arthrodesis status; Z88.1 Allergy status to other antibiotic agents; Z88.8 Allergy status to other drugs, medicaments and biological substances; Z79.84 Long term (current) use of oral hypoglycemic drugs; Z79.82 Long term (current) use of aspirin
CPT/HCPCS: 36415; 36416; 80048; 80053; 80202; 81003; 83605; 85025; 86140; 87040; 87070; 87077; 87086; 87186; 87205; 96365; 96375; J0692; J0696; J1815; J1885; J2270; J2405; J3370-JW; J3372; J3490; J7030; J7050